=== PATIENT | female | born 1940 | race Caucasian/White ===

== ENCOUNTER 2020-02-16 14:11 | Outpatient (CLI) | payer MEDICARE, MEDICAID ==
[~2020-02-16 14:11] MED LIST: ALBU8.5H5 INH; ALEN70TA6 PO; AMIT150T PO; AMLO5TAB4 PO; AZEL137S6 INH; CARI350T14 PO; CEVI30CA PO; FURO-93 PO; LEVO100T PO; LEVO100T5 PO; LEVO5TAB2 PO; LOSA25TA25 PO; LUTE10TA2 PO; METH750T87 PO; METO25TA35 PO; OLME40TA12 PO; OMEP-110 PO; OXYC5CAP2 PO; PREG25CA PO; QUET25TA5 PO; SALM50DI INH; TRIA10.8 INH; ZINC50CA PO; [UNRECOGNIZED DRUG - OTHER] OP
== END 2020-02-16 23:59 | disposition home or self-care (01) ==
LOC: WOUND 14:11
PROVIDERS: ATTEND Internal Medicine
DX: T22.311A Burn of third degree of right forearm, initial encounter (principal); T31.0 Burns involving less than 10% of body surface; S40.841A External constriction of right upper arm, initial encounter; M06.9 Rheumatoid arthritis, unspecified; M81.0 Age-related osteoporosis without current pathological fracture; H54.8 Legal blindness, as defined in USA; I10 Essential (primary) hypertension; J45.909 Unspecified asthma, uncomplicated; E03.9 Hypothyroidism, unspecified; G90.09 Other idiopathic peripheral autonomic neuropathy; Z88.0 Allergy status to penicillin; Z91.040 Latex allergy status; Z90.710 Acquired absence of both cervix and uterus; Z90.49 Acquired absence of other specified parts of digestive tract; X08.8XXA Exposure to other specified smoke, fire and flames, initial encounter; Y93.89 Activity, other specified; Y92.89 Other specified places as the place of occurrence of the external cause; Y99.8 Other external cause status
CPT/HCPCS: 16020; G0463; 97597

== ENCOUNTER 2020-02-23 12:32 | Outpatient (CLI) | payer MEDICARE, MEDICAID | END 2020-02-23 23:59 | disposition home or self-care (01) | LOC: WOUND 12:32 | PROVIDERS: ATTEND Internal Medicine | DX: T22.211D Burn of second degree of right forearm, subsequent encounter (principal); T31.0 Burns involving less than 10% of body surface; I10 Essential (primary) hypertension; J45.909 Unspecified asthma, uncomplicated; E03.9 Hypothyroidism, unspecified; M81.0 Age-related osteoporosis without current pathological fracture; M06.9 Rheumatoid arthritis, unspecified; G62.9 Polyneuropathy, unspecified; Z90.49 Acquired absence of other specified parts of digestive tract; Z90.710 Acquired absence of both cervix and uterus; Z88.0 Allergy status to penicillin; Z91.040 Latex allergy status; X08.8XXD Exposure to other specified smoke, fire and flames, subsequent encounter | CPT/HCPCS: 16020; 97597 ==

== ENCOUNTER → 2020-03-01 | Outpatient (CLI) | payer MEDICARE, MEDICAID | END | disposition home or self-care (01) | LOC: WOUND 14:42 | PROVIDERS: ATTEND Internal Medicine | DX: T22.311D Burn of third degree of right forearm, subsequent encounter (principal); T31.0 Burns involving less than 10% of body surface; G90.09 Other idiopathic peripheral autonomic neuropathy; J45.909 Unspecified asthma, uncomplicated; E03.9 Hypothyroidism, unspecified; I10 Essential (primary) hypertension; M06.9 Rheumatoid arthritis, unspecified; M81.0 Age-related osteoporosis without current pathological fracture; H54.8 Legal blindness, as defined in USA; Z90.710 Acquired absence of both cervix and uterus; Z90.49 Acquired absence of other specified parts of digestive tract; X08.8XXD Exposure to other specified smoke, fire and flames, subsequent encounter | CPT/HCPCS: 16020; 97597 ==

== ENCOUNTER 2020-03-15 14:36 | Outpatient (CLI) | payer MEDICARE, MEDICAID | END 2020-03-15 23:59 | disposition home or self-care (01) | LOC: WOUND 14:36 | PROVIDERS: ATTEND Internal Medicine | DX: T22.311D Burn of third degree of right forearm, subsequent encounter (principal); T31.0 Burns involving less than 10% of body surface; G90.09 Other idiopathic peripheral autonomic neuropathy; J45.909 Unspecified asthma, uncomplicated; E03.9 Hypothyroidism, unspecified; I10 Essential (primary) hypertension; M06.9 Rheumatoid arthritis, unspecified; M81.0 Age-related osteoporosis without current pathological fracture; H54.8 Legal blindness, as defined in USA; Z90.710 Acquired absence of both cervix and uterus; Z90.49 Acquired absence of other specified parts of digestive tract; Z88.0 Allergy status to penicillin; Z91.040 Latex allergy status; X08.8XXD Exposure to other specified smoke, fire and flames, subsequent encounter | CPT/HCPCS: 16020; 97597 ==

== ENCOUNTER → 2020-04-05 | Outpatient (CLI) | payer MEDICARE, MEDICAID | END | disposition home or self-care (01) | LOC: WOUND 13:58 | PROVIDERS: ATTEND Internal Medicine | DX: T22.311D Burn of third degree of right forearm, subsequent encounter (principal); T31.0 Burns involving less than 10% of body surface; G90.09 Other idiopathic peripheral autonomic neuropathy; J45.909 Unspecified asthma, uncomplicated; E03.9 Hypothyroidism, unspecified; M06.9 Rheumatoid arthritis, unspecified; I10 Essential (primary) hypertension; M81.0 Age-related osteoporosis without current pathological fracture; H54.8 Legal blindness, as defined in USA; Z90.710 Acquired absence of both cervix and uterus; Z90.49 Acquired absence of other specified parts of digestive tract; Z88.0 Allergy status to penicillin; Z91.040 Latex allergy status; X08.8XXD Exposure to other specified smoke, fire and flames, subsequent encounter | CPT/HCPCS: G0463 ==